=== PATIENT | female | born 1990 | race Caucasian/White ===

== ENCOUNTER → 2020-06-14 | Outpatient (CLI) | payer OTHER ==
[~2020-06-14] MED LIST: ALLERGY RELIEF10 MG PO; FIB PO; FLOVENT DISKUS50 MCG INH; HYDROCODON-ACE1 EAC4 PO; IBUPROFEN600 MG PO; LEVOTHYROXINE25 MC1 PO; LEVOTHYROXINE25 MCG PO; METAMUCIL PLUS1 EACH PO; METAMUCIL PO; PAROXETINE HCL20 MG PO; PROBIOTIC1 EAC1 PO; SINGULAIR10 MG PO
== END ==
LOC: NM 04-21 13:00
DX: R10.9 Unspecified abdominal pain (principal); R93.5 Abnormal findings on diagnostic imaging of other abdominal regions, including retroperitoneum
CPT/HCPCS: 78227; A9537; J2805

== ENCOUNTER → 2020-06-23 | Day surgery (SDC) | payer OTHER | END | disposition home or self-care (01) | LOC: OR 06:39 | DX: K81.1 Chronic cholecystitis (principal); F41.9 Anxiety disorder, unspecified; E03.9 Hypothyroidism, unspecified; Z20.822 Contact with and (suspected) exposure to COVID-19; Z91.041 Radiographic dye allergy status; Z91.040 Latex allergy status; Z79.2 Long term (current) use of antibiotics; Z79.899 Other long term (current) drug therapy | CPT/HCPCS: 84703; J0690; J1170; J1885; J2250; J2405; J2704; J2710; J3010; J7030; J7120 ==

== ENCOUNTER → 2021-05-29 | Outpatient (CLI) | payer OTHER | LOC: KOH-I 13:00 | DX: E05.90 Thyrotoxicosis, unspecified without thyrotoxic crisis or storm (principal) | CPT/HCPCS: 76536 ==

== ENCOUNTER → 2022-01-25 | Outpatient (CLI) | payer BC | LOC: KOH-I 01-22 13:00 | DX: E04.2 Nontoxic multinodular goiter (principal) | CPT/HCPCS: 76536 ==